=== PATIENT | male | born 1985 | race African-American/Black ===

== ENCOUNTER 2018-02-10 12:58 | Emergency (ER) | payer SELFPAY ==
--- NOTE | 2018-02-10 15:02 | ER ---
Nurse's Notes [facility] Name: Osiris Saldana Age: 32 yrs Sex: Male : 1985 Arrival Date: 02/10/2018 Time: 13:02 Bed 17 Private MD: None, None Diagnosis: Pilonidal cyst and sinus with abscess Presentation: 02/10 13:11 Presenting complaint: Patient states: Abscess to the coccyx for the past week. States aj1 that his girlfriend tried to michael it, but it hasn't gotten bett.er Denies fever. Transition of care: patient was not received from another setting of care. Onset of symptoms was February 03, 2018. Risk Assessment: Do you want to hurt yourself or someone else? Patient reports no desire to harm self or others. Initial Sepsis Screen: Does the patient meet any 2 criteria? No. Patient's initial sepsis screen is negative. Does the patient have a suspected source of infection? Yes: Skin breakdown/wound. Care prior to arrival: None. 13:11 Method Of Arrival: Ambulatory aj 13:11 Acuity: SHAMAR 4 aj1 Triage Assessment: 13:13 General: Appears in no apparent distress. uncomfortable, Behavior is calm, cooperative, aj1 appropriate for age. Pain: Complains of pain in coccyx Pain currently is 10 out of 10 on a pain scale. Neuro: Level of Consciousness is awake, alert, obeys commands. Cardiovascular: Patient's skin is warm and dry. Respiratory: Airway is patent Respiratory effort is even, unlabored, Respiratory pattern is regular, symmetrical. Historical: - Allergies: 13:13 No Known Allergies; aj1 - Home Meds: 13:13 None [Active]; aj1 - PMHx: 13:13 None; aj1 - PSHx: 13:13 None; aj1 - Immunization history:: Flu vaccine is not up to date. - Social history:: Smoking status: Patient/guardian denies using tobacco. - Ebola Screening: : Patient denies travel to an Ebola-affected area in the 21 days before illness onset. Screenin:05 Abuse screen: Denies threats or abuse. Denies injuries from another. Nutritional sv screening: No deficits noted. Tuberculosis screening: No symptoms or risk factors identified. Fall Risk None identified. Assessment: 14:05 General: Appears in no apparent distress. uncomfortable, well developed, Behavior is sv calm, cooperative, appropriate for age. Pain: Complains of pain in coccyx and gluteal cleft Pain currently is 10 out of 10 on a pain scale. Quality of pain is described as pressure, Is continuous, Aggravated by sitting down. Neuro: Level of Consciousness is awake, alert, obeys commands, Oriented to person, place, time, situation, Moves all extremities. Full function Gait is steady, Speech is normal. Respiratory: Respiratory effort is even, unlabored, Respiratory pattern is regular, symmetrical. Derm: Skin is pink, warm \T\ dry. Abscess located on coccyx and buttocks is quarter sized, is red, is raised, was lanced by patient prior to arrival. 15:15 Reassessment: Patient appears in no apparent distress at this time. Patient and/or sv family updated on plan of care and expected duration. Pain level reassessed. Patient is alert, oriented x 3, equal unlabored respirations, skin warm/dry/pink. Vital Signs: 13:13 BP 135 / 78; Pulse 75; Resp 16; Temp 98.4; Pulse Ox 99% on R/A; Weight 86.18 kg (R); aj1 Height 5 ft. 9 in. (175.26 cm) (R); Pain 10/10; 13:13 Body Mass Index 28.06 (86.18 kg, 175.26 cm) aj1 ED Course: 13:02 Patient arrived in ED. sb2 13:02 None, None is Private Physician. sb2 13:13 Triage completed. aj1 13:13 Arm band placed on Patient placed in waiting room, Patient notified of wait time. aj1 13:59 Yodit Casper, RN is Primary Nurse. sv 14:00 Mac Singh MD is Attending Physician. gs 14:05 Patient has correct armband on for positive identification. Placed in gown. Bed in low sv position. Call light in reach. Pulse ox on. NIBP on. Door closed. Warm blanket given. Head of bed elevated. 14:40 Assist provider with I \T\ D: of an abscess on pilonidal cyst Set up I\T\D tray. Performed sv by Mac Singh MD Dressing with 4X4s, tape. 14:59 James Toure MD is Referral Physician. gs 15:05 Dressings: 4X4s X 1; buttocks. sv 15:15 Patient did not have IV access during this emergency room visit. sv Administered Medications: No medications were administered Outcome: 15:02 Discharge ordered by . gs 15:15 Discharged to home ambulatory. sv 15:15 Condition: stable 15:15 Discharge instructions given to patient, Instructed on discharge instructions, follow up and referral plans. medication usage, wound care, Demonstrated understanding of instructions, follow-up care, medications, wound care, Prescriptions given X 1. 15:16 Patient left the ED. sv Signatures: Autumn Altman RN RN aj1 Yodit Casper RN RN sv Mac Singh MD MD gs Billeau, Sheri sb2
--- NOTE | 2018-02-10 15:02 | EDPHYS ---
Physician Documentation [facility] Name: Osiris Saldana Age: 32 yrs Sex: Male : 1985 Arrival Date: 02/10/2018 Time: 13:02 Bed 17 Private MD: None, None ED Physician Mac Singh HPI: 02/10 14:54 This 32 yrs old Black Male presents to ER via Ambulatory with complaints of Abscess. gs 14:54 Description: The affected area is small, confluent. Onset: The symptoms/episode gs began/occurred 3 day(s) ago, and became worse and became persistent. Possible cause(s): unknown. Associated signs and symptoms: Pertinent negatives: fever. Severity of symptoms: At their worst the symptoms were moderate, in the emergency department the symptoms are unchanged. The patient has experienced similar episodes in the past, a few times. Historical: - Allergies: 13:13 No Known Allergies; aj1 - Home Meds: 13:13 None [Active]; aj1 - PMHx: 13:13 None; aj1 - PSHx: 13:13 None; aj1 - Immunization history:: Flu vaccine is not up to date. - Social history:: Smoking status: Patient/guardian denies using tobacco. - Ebola Screening: : Patient denies travel to an Ebola-affected area in the 21 days before illness onset. ROS: 14:54 All other systems are negative. gs Exam: 14:54 Head/Face: Normocephalic, atraumatic. Cardiovascular: Regular rate and rhythm with a gs normal S1 and S2. No gallops, murmurs, or rubs. Normal PMI, no JVD. No pulse deficits. Respiratory: Lungs have equal breath sounds bilaterally, clear to auscultation and percussion. No rales, rhonchi or wheezes noted. No increased work of breathing, no retractions or nasal flaring. Abdomen/GI: Soft, non-tender, with normal bowel sounds. No distension or tympany. No guarding or rebound. No evidence of tenderness throughout. 14:54 Constitutional: The patient appears alert, awake. 14:54 Skin: abscess, that is small, of the coccyx, with drainage, that is purulent. Vital Signs: 13:13 BP 135 / 78; Pulse 75; Resp 16; Temp 98.4; Pulse Ox 99% on R/A; Weight 86.18 kg (R); aj1 Height 5 ft. 9 in. (175.26 cm) (R); Pain 10/10; 13:13 Body Mass Index 28.06 (86.18 kg, 175.26 cm) aj Procedures: 14:54 I \T\ D: Incision and drainage was performed for an abscess of the pilonidal cyst Prepped gs with Betadine, Anesthetized with 3 ml's 1% Lidocaine w/ Epi. Incised with #15 blade. Drained moderate amount Loculations removed. the patient tolerated the procedure well. MDM: 14:07 Patient medically screened. 14:54 Data reviewed: vital signs, nurses notes. gs Administered Medications: No medications were administered Disposition: 02/10/18 15:02 Discharged to Home. Impression: Pilonidal cyst and sinus with abscess. - Condition is Stable. - Prescriptions for Doxycycline Monohydrate 100 mg Oral Tablet - take 1 tablet by ORAL route every 12 hours for 7 days; 14 tablet. - Medication Reconciliation Form, Thank You Letter, Antibiotic Education, Prescription Opioid Use form. - Follow up: James Toure MD; When: 2 - 3 days; Reason: Recheck today's complaints, Re-evaluation by your physician. Signatures: Autumn Altman RN RN aj1 Yodit Casper RN RN Mac Singh MD MD Corrections: (The following items were deleted from the chart) 15:16 15:02 02/10/2018 15:02 Discharged to Home. Impression: Pilonidal cyst and sinus with sv abscess. Condition is Stable. Forms are Medication Reconciliation Form, Thank You Letter, Antibiotic Education, Prescription Opioid Use. Follow up: James Toure; When: 2 - 3 days; Reason: Recheck today's complaints, Re-evaluation by your physician.
== END 2018-02-10 15:16 | disposition home or self-care (01) ==
LOC: ER 12:58
PROC: 0H98XZZ Drainage of Buttock Skin, External Approach (ICD-10-PCS; principal; 2018-02-10)
DX: L05.01 Pilonidal cyst with abscess (principal)
CPT/HCPCS: 99283

== ENCOUNTER 2018-03-12 18:38 | Emergency (ER) | payer SELFPAY ==
--- NOTE | 2018-03-12 20:07 | ER ---
Nurse's Notes [facility] Name: Osiris Saldana Age: 32 yrs Sex: Male : 1985 Arrival Date: 03/12/2018 Time: 18:41 Bed 26 Private MD: None, None Diagnosis: Acute facial folliculitis Presentation: 03/12 18:50 Presenting complaint: Patient states: Vesicular rash to center of forehead for 2 days. aj Transition of care: patient was not received from another setting of care. Onset of symptoms was March 10, 2018. Risk Assessment: Do you want to hurt yourself or someone else? Patient reports no desire to harm self or others. Initial Sepsis Screen: Does the patient meet any 2 criteria? No. Patient's initial sepsis screen is negative. Does the patient have a suspected source of infection? No. Patient's initial sepsis screen is negative. Care prior to arrival: None. 18:50 Method Of Arrival: Ambulatory aj 18:50 Acuity: SHAMAR 4 aj Triage Assessment: 18:51 General: Appears in no apparent distress. comfortable, Behavior is calm, cooperative, aj appropriate for age. Pain: Complains of pain in forehead. Neuro: Level of Consciousness is awake, alert, obeys commands, Oriented to person, place, time, situation, Appropriate for age. Respiratory: Airway is patent Trachea midline Respiratory effort is even, unlabored, Respiratory pattern is regular, symmetrical. Derm: Skin is intact, is healthy with good turgor, Skin is pink, warm \T\ dry. normal, Rash noted that is vesicular, on forehead. Historical: - Allergies: 18:51 No Known Allergies; aj - Home Meds: 18:51 None [Active]; aj - PMHx: 18:51 eczema; aj - PSHx: 18:51 None; aj - Immunization history:: Adult Immunizations up to date. - Social history:: Smoking status: Patient/guardian denies using tobacco. - Ebola Screening: : Patient negative for fever greater than or equal to 101.5 degrees Fahrenheit, and additional compatible Ebola Virus Disease symptoms Patient denies exposure to infectious person Patient denies travel to an Ebola-affected area in the 21 days before illness onset No symptoms or risks identified at this time. - Family history:: not pertinent. - Hospitalizations: : No recent hospitalization is reported. Screenin:28 Abuse screen: Denies threats or abuse. Denies injuries from another. Nutritional rv screening: No deficits noted. Tuberculosis screening: No symptoms or risk factors identified. Fall Risk None identified. Assessment: 19:30 General: Appears in no apparent distress. comfortable, Behavior is calm, cooperative. rv 19:30 Pain: Denies pain. Neuro: Level of Consciousness is awake, alert, obeys commands, rv Oriented to person, place, time, situation. Cardiovascular: Capillary refill < 3 seconds. Respiratory: Airway is patent. GI: No signs and/or symptoms were reported involving the gastrointestinal system. : No signs and/or symptoms were reported regarding the genitourinary system. EENT: No signs and/or symptoms were reported regarding the EENT system. Derm: Skin is intact. Musculoskeletal: No signs and/or symptoms reported regarding the musculoskeletal system. Vital Signs: 18:51 BP 127 / 67; Pulse 96; Resp 19; Temp 98.6; Pulse Ox 100% on R/A; Weight 88.45 kg; aj Height 5 ft. 9 in. (175.26 cm); 20:26 BP 124 / 75; Pulse 88 MON; Resp 17 S; Pulse Ox 100% on R/A; rv 18:51 Body Mass Index 28.80 (88.45 kg, 175.26 cm) ED Course: 18:41 Patient arrived in ED. mr 18:41 None, None is Private Physician. mr 18:51 Triage completed. aj 18:51 Arm band placed on left wrist. Patient placed. 19:29 Simon Mercado MD is Attending Physician. ar 20:29 Patient has correct armband on for positive identification. Call light in reach. Side rv rails up X 1. Pulse ox on. NIBP on. 20:29 No provider procedures requiring assistance completed. Patient did not have IV access rv during this emergency room visit. Administered Medications: No medications were administered Outcome: 20:06 Discharge ordered by . wa 20:29 Discharged to home ambulatory. rv 20:29 Condition: good 20:29 Discharge instructions given to patient, Instructed on discharge instructions, follow up and referral plans. medication usage, Demonstrated understanding of instructions, follow-up care, medications, Prescriptions given X 1. 20:30 Patient left the ED. rv Signatures: Desire Kimble RN RN aj Rivera, Mary mr Simon Mercado MD MD wa Vicente, Ronaldo, RN RN rv
--- NOTE | 2018-03-12 20:07 | EDPHYS ---
Physician Documentation [facility] Name: Osiris Saldana Age: 32 yrs Sex: Male : 1985 Arrival Date: 03/12/2018 Time: 18:41 Bed 26 Private MD: None, None ED Physician Simon Mercado HPI: 03/12 20:08 This 32 yrs old Black Male presents to ER via Ambulatory with complaints of Rash. wa 20:08 The patient's rash thought to be caused by an unknown cause. The rash is located on the wv forehead. The rash can be described as grouped vesicles concentrated in a small area. Onset: The symptoms/episode began/occurred yesterday. Associated signs and symptoms: Pertinent positives: Pain Pertinent negatives: fever, itching. Severity of symptoms: At their worst the symptoms were mild in the emergency department the symptoms are unchanged. Treatment given at home: none. The patient has not experienced similar symptoms in the past. The patient has not recently seen a physician. Historical: - Allergies: 18:51 No Known Allergies; aj - Home Meds: 18:51 None [Active]; aj - PMHx: 18:51 eczema; aj - PSHx: 18:51 None; aj - Immunization history:: Adult Immunizations up to date. - Social history:: Smoking status: Patient/guardian denies using tobacco. - Ebola Screening: : Patient negative for fever greater than or equal to 101.5 degrees Fahrenheit, and additional compatible Ebola Virus Disease symptoms Patient denies exposure to infectious person Patient denies travel to an Ebola-affected area in the 21 days before illness onset No symptoms or risks identified at this time. - Family history:: not pertinent. - Hospitalizations: : No recent hospitalization is reported. ROS: 20:10 Constitutional: Negative for fever, chills, and weight loss, Eyes: Negative for injury, wa pain, redness, and discharge, ENT: Negative for injury, pain, and discharge, Neck: Negative for injury, pain, and swelling, Cardiovascular: Negative for chest pain, palpitations, and edema, Respiratory: Negative for shortness of breath, cough, wheezing, and pleuritic chest pain, Abdomen/GI: Negative for abdominal pain, nausea, vomiting, diarrhea, and constipation, Back: Negative for injury and pain, : Negative for injury, bleeding, discharge, and swelling, MS/Extremity: Negative for injury and deformity, Neuro: Negative for headache, weakness, numbness, tingling, and seizure, Psych: Negative for depression, anxiety, suicide ideation, homicidal ideation, and hallucinations. 20:10 Skin: Positive for rash, of the face. 20:10 All other systems are negative. Exam: 20:10 Constitutional: This is a well developed, well nourished patient who is awake, alert, wa and in no acute distress. Head/Face: Normocephalic, atraumatic. Eyes: Pupils equal round and reactive to light, extra-ocular motions intact. Lids and lashes normal. Conjunctiva and sclera are non-icteric and not injected. Cornea within normal limits. Periorbital areas with no swelling, redness, or edema. ENT: Nares patent. No nasal discharge, no septal abnormalities noted. Tympanic membranes are normal and external auditory canals are clear. Oropharynx with no redness, swelling, or masses, exudates, or evidence of obstruction, uvula midline. Mucous membranes moist. Neck: Trachea midline, no thyromegaly or masses palpated, and no cervical lymphadenopathy. Supple, full range of motion without nuchal rigidity, or vertebral point tenderness. No Meningismus. Chest/axilla: Normal chest wall appearance and motion. Nontender with no deformity. No lesions are appreciated. Cardiovascular: Regular rate and rhythm with a normal S1 and S2. No gallops, murmurs, or rubs. Normal PMI, no JVD. No pulse deficits. Respiratory: Lungs have equal breath sounds bilaterally, clear to auscultation and percussion. No rales, rhonchi or wheezes noted. No increased work of breathing, no retractions or nasal flaring. Abdomen/GI: Soft, non-tender, with normal bowel sounds. No distension or tympany. No guarding or rebound. No evidence of tenderness throughout. Back: No spinal tenderness. No costovertebral tenderness. Full range of motion. MS/ Extremity: Pulses equal, no cyanosis. Neurovascular intact. Full, normal range of motion. Neuro: Awake and alert, GCS 15, oriented to person, place, time, and situation. Cranial nerves II-XII grossly intact. Motor strength 5/5 in all extremities. Sensory grossly intact. Cerebellar exam normal. Normal gait. Psych: Awake, alert, with orientation to person, place and time. Behavior, mood, and affect are within normal limits. 20:10 Skin: rash can be described as small grouped follicular lesions mid forehead. Vital Signs: 18:51 BP 127 / 67; Pulse 96; Resp 19; Temp 98.6; Pulse Ox 100% on R/A; Weight 88.45 kg; aj Height 5 ft. 9 in. (175.26 cm); 20:26 BP 124 / 75; Pulse 88 MON; Resp 17 S; Pulse Ox 100% on R/A; rv 18:51 Body Mass Index 28.80 (88.45 kg, 175.26 cm) Procedures: 20:12 I \T\ D: Incision and drainage was performed for an abscess of the face small follicles wa broken with gauze. MDM: 19:29 Patient medically screened. wa 20:11 Differential diagnosis: folliculitis. Data reviewed: vital signs, nurses notes. wa Administered Medications: No medications were administered Disposition: 03/12/18 20:06 Discharged to Home. Impression: Acute facial folliculitis. - Condition is Stable. - Discharge Instructions: Folliculitis. - Prescriptions for Keflex 500 mg Oral Capsule - take 1 capsule by ORAL route every 8 hours for 5 days; 30 capsule. - Medication Reconciliation Form, Thank You Letter, Antibiotic Education, Prescription Opioid Use form. - Follow up: Private Physician; When: 1 - 2 days; Reason: Recheck today's complaints. - Problem is new. - Symptoms have improved. - Notes: take antibiotics as prescribed. apply topical neosporin to area daily until healed. do not tie scarf on the area of infection. Signatures: Desire Kimble RN RN Simon Batista MD MD wa Vicente, Ronaldo, RN RN rv Corrections: (The following items were deleted from the chart) 20:30 20:06 03/12/2018 20:06 Discharged to Home. Impression: Acute facial folliculitis. rv Condition is Stable. Forms are Medication Reconciliation Form, Thank You Letter, Antibiotic Education, Prescription Opioid Use. Follow up: Private Physician; When: 1 - 2 days; Reason: Recheck today's complaints. Problem is new. Symptoms have improved. wa
== END 2018-03-12 20:30 | disposition home or self-care (01) ==
LOC: ER 18:38
DX: L73.9 Follicular disorder, unspecified (principal)
CPT/HCPCS: 99283